=== PATIENT | male | born 2000 | race Hispanic/Latino ===

== ENCOUNTER 2025-06-20 17:08 | Emergency (ER) | payer OTHER ==
[2025-06-20] MEDS ORDERED: Ibuprofen 800 MG TAB ONE (17:44)
== END 2025-06-20 17:56 | disposition home or self-care (01) ==
LOC: CSHERS 17:08
DX: S46.912A Strain of unspecified muscle, fascia and tendon at shoulder and upper arm level, left arm, initial encounter (principal); J45.909 Unspecified asthma, uncomplicated; X50.1XXA Overexertion from prolonged static or awkward postures, initial encounter; Y93.44 Activity, trampolining
CPT/HCPCS: 99283